=== PATIENT | female | born 1970 | race Caucasian/White ===

== ENCOUNTER 2021-07-26 22:35 | Observation (INO) ==
[2021-07-26] MEDS ORDERED: MORPHINE 2 MG/1 ML SYRINGE IV STA (23:13)
[2021-07-26] MEDS ORDERED: ONDANSETRON 4 MG/2 ML VIAL IV STA (23:13)
[2021-07-27] MEDS ORDERED: GLUCAGON 1 MG VIAL IM PRN (00:17)
[2021-07-27] MEDS ORDERED: DEXTROSE 50% 25 GM/50 ML VIAL IV PRN (00:17)
[2021-07-27] MEDS ORDERED: ACETAMINOPHEN 325 MG TABLET PO PRN (00:17)
[2021-07-27 00:33] LABS: Basophils # 0.1 10*3/uL (0.0-0.2); Basophils % 0.9 % (0.0-0.8); Eosinophils # 0.2 10*3/uL (0.0-0.87); Eosinophils % 2.7 % (0.00-10.9); Hematocrit 32.1 VOL% (35.7-47.0); Immature Granulocytes % 0.3 %; Immature Granulocytes Absolute 0.02 #; Lymphocytes # 2.1 10*3/uL (1.4-4.0); Lymphocytes % 33.3 % (21.3-54.2); Mean Corpuscular HGB Conc 31.2 GM/DL (32-36); Mean Corpuscular Volume 86.8 FL (87-102); Mean Platelet Volume 11.1 FL (9.6-12.0); Monocytes % 6.8 % (1.7-12.7); Platelet Count 172 T/CUMM (130-400); Red Cell Distribution Width 15.2 % (9.3-17.3); White Blood Count 6.4 T/CUMM (4-12)
[2021-07-27] MEDS ORDERED: hydrALAZINE 20 MG/1 ML VIAL IV PRN (00:39)
[2021-07-27 00:48] LABS: Albumin 3.7 G/DL (3.4-5.0); Bilirubin,Total 0.5 MG/DL (0.20-1.00); Calcium 8.5 MG/DL (8.5-10.1); Osmolality,Calculated 265.1 MOS/KG (273-304); Potassium 3.6 MMOL/L (3.5-5.1); Total Protein 6.3 G/DL (6.4-8.2)
[2021-07-27] MEDS: MORPHINE 2 MG/1 ML SYRINGE IV PRN ×2 (02:27→08:02)
[2021-07-27 08:01] LABS: Barbiturates Screen,Urine Negative (Negative); Benzodiazepines Screen,Urine Negative (Negative); Cannabinoid Screen,Urine Positive (Negative); Opiate Screen,Urine Positive (Negative); Phencyclidine Screen,Urine Negative (Negative)
[2021-07-27] MEDS: ROSUVASTATIN 10 MG TABLET PO SCH (08:37)
[2021-07-27] MEDS: ASPIRIN EC 81 MG TABLET PO SCH ×2 (08:37→21:09)
[2021-07-27] MEDS: ENOXAPARIN 40 MG/0.4 ML SYRINGE SUBCUT SCH (08:38)
[2021-07-27] MEDS: carvediloL 3.125 MG TABLET PO SCH ×2 (08:43→21:10)
[2021-07-27] MEDS: PANTOPRAZOLE 40 MG TABLET PO SCH ×2 (13:26→21:09)
[2021-07-27] MEDS: ISOSORBIDE MONONITRATE 30 MG TABLET PO SCH (13:27)
[2021-07-27] MEDS ORDERED: CLOPIDOGREL 75 MG TABLET PO SCH (21:00)
[2021-07-28 05:58] LABS: Basophils # 0.1 10*3/uL (0.0-0.2); Basophils % 1.7 % (0.0-0.8); Eosinophils # 0.2 10*3/uL (0.0-0.87); Eosinophils % 4.3 % (0.00-10.9); Hematocrit 31.9 VOL% (35.7-47.0); Hemoglobin 10.2 GM/DL (12.0-16.0); Immature Granulocytes % 0.2 %; Immature Granulocytes Absolute 0.01 #; Lymphocytes # 1.6 10*3/uL (1.4-4.0); Lymphocytes % 37.9 % (21.3-54.2); Mean Platelet Volume 11.2 FL (9.6-12.0); Monocytes % 10.1 % (1.7-12.7); Neutrophils % 45.8 % (38.7-73.9); Platelet Count 175 T/CUMM (130-400); Red Blood Count 3.71 MC/CUMM (3.8-5.5); Red Cell Distribution Width 15.2 % (9.3-17.3); White Blood Count 4.2 T/CUMM (4-12)
[2021-07-28 06:46] LABS: Calcium 8.9 MG/DL (8.5-10.1); Osmolality,Calculated 271.7 MOS/KG (273-304); Potassium 4.1 MMOL/L (3.5-5.1)
[2021-07-28] MEDS: carvediloL 3.125 MG TABLET PO SCH (09:04)
[2021-07-28] MEDS: ISOSORBIDE MONONITRATE 30 MG TABLET PO SCH (09:04)
[2021-07-28] MEDS: ROSUVASTATIN 10 MG TABLET PO SCH (09:05)
[2021-07-28] MEDS: PANTOPRAZOLE 40 MG TABLET PO SCH (09:05)
[2021-07-28] MEDS: ASPIRIN EC 81 MG TABLET PO SCH (09:05)
[2021-07-28] MEDS: ENOXAPARIN 40 MG/0.4 ML SYRINGE SUBCUT SCH (09:06)
[2021-07-28 12:12] VITALS: BP 114/58
== END 2021-07-28 13:39 | disposition home or self-care (01) ==
LOC: EDUNIT# → N.EDINP 22:35 → N.ED 22:35 → N.TELES 07-27 00:51
PROVIDERS: ADMIT Hospitalist; ATTEND Hospitalist